=== PATIENT | male | born 1980 | race African-American/Black ===

== ENCOUNTER 2016-11-21 14:47 | Emergency (ER) | payer SELFPAY ==
[2016-11-21] MEDS ORDERED: Sodium Chloride 0.9% 10 ML Syringe FLUSH PRN (15:32)
--- NOTE | 2016-11-21 15:40 | EDM.PDOC ---
ED HPI GENERAL MEDICAL PROBLEM - General Chief Complaint: Chest Pain Stated Complaint: HIGH BLOOD PRESSURE, LEFT ARM PAIN Time Seen by Provider: 11/21/16 15:20 Source of Information: Reports: Patient History Limitations: Reports: No Limitations - History of Present Illness INITIAL COMMENTS - FREE TEXT/NARRATIVE: Patient is a 36-year-old male who reports to the ED complaining of elevated blood pressure. States this past Sunday got in a heated argument with his . States he felt on edge Sunday and Sunday. Yesterday developed some soreness to his left shoulder concerned this was related to his heart. He did sleep on a couch that evening thus questions if this may also be related to sleeping wrong. This morning took his hypertension medication lisinopril 10 mg and HCTZ. At approximately 2:00 checked his blood pressure found to be 198/129 and thus took a second tablet of his antihypertensive medication. On recheck blood pressure was 158/103. Normally the patients blood pressure runs 135/70. He does feel anxious and on edge. Currently does not have any chest pain, sob, numbness and tingling to his extremities, pain to his left shoulder, pain to his back, dizziness, fever, or any additional complaint. Patient smokes approximately one pack per day. Denies any excessive caffeine or energy drink use. Denies any recreational drugs. Patient is here working in the [employer] field. He is from [place]. States his brother had a heart attack and a stroke. Left Shoulder Pain Score (Numeric/FACES): 6 - Related Data Allergies Allergy/AdvReac Type Severity Reaction Status Date / Time diphenhydramine Allergy Anaphylactic Verified 11/21/16 14:55 [From Benadryl] Shock Home Meds: Home Meds Lisinopril/Hydrochlorothiazide [Lisinopril-Hctz 10-12.5 mg Tab] 1 tab PO DAILY 11/21/16 [History] Past Medical History Respiratory History: Reports: Asthma Social & Family History - Family History Family Medical History: Noncontributory Neurological: Reports: CVA Other Neurological Family History: brother - Tobacco Use Smoking Status *Q: Current Every Day Smoker Years of Tobacco use: 20 Packs/Tins Daily: 1 - Caffeine Use Caffeine Use: Reports: None - Recreational Drug Use Recreational Drug Use: No ED ROS GENERAL - Review of Systems Review Of Systems: ROS reveals no pertinent complaints other than HPI. ED EXAM, GENERAL - Physical Exam Exam: See Below Exam Limited By: No Limitations General Appearance: Alert, WD/WN, No Apparent Distress Ears: Hearing Grossly Normal Nose: Normal Inspection Throat/Mouth: Normal Voice, No Airway Compromise Neck: Normal Inspection, Supple Respiratory/Chest: No Respiratory Distress, Lungs Clear, Normal Breath Sounds, No Accessory Muscle Use, Chest Non-Tender Cardiovascular: Normal Peripheral Pulses, Regular Rate, Rhythm, No Murmur Peripheral Pulses: 2+: Radial (L), Radial (R) GI/Abdominal: Normal Bowel Sounds, Soft, Non-Tender, No Organomegaly, No Distention Extremities: Normal Inspection, Non-Tender, No Pedal Edema Neurological: Alert, Oriented, CN II-XII Intact, Normal Cognition, No Motor/ Sensory Deficits Psychiatric: Normal Affect, Normal Mood Skin Exam: Warm, Dry, Intact, Normal Color Course - Vital Signs Last Recorded V/S: Last Vital Signs Temp 97.4 F 11/21/16 14:50 Pulse 102 H 11/21/16 14:50 Resp 18 11/21/16 14:50 BP 149/117 H 11/21/16 16:13 Pulse Ox 96 11/21/16 14:50 - Orders/Labs/Meds Orders: Active Orders 24 hr Category Date Time Status EKG Documentation Completion [RC] STAT Care 11/21/16 15:32 Active Peripheral IV Care [RC] . DIRECTED Care 11/21/16 15:32 Active Chest 1V Frontal [CR] Stat Exams 11/21/16 15:32 Taken Peripheral IV Insertion Adult [OM.PC] Stat Oth 11/21/16 15:32 Ordered Labs: Laboratory Tests 11/21/16 11/21/16 Range/Units 14:55 14:55 WBC 11.00 H (4.23-9.07) K/mm3 RBC 6.43 H (4.63-6.08) M/mm3 Hgb 18.5 H (13.7-17.5) gm/L Hct 52.3 H (40.1-51.0) % MCV 81.3 (79.0-92.2) fl MCH 28.8 (25.7-32.2) pg MCHC 35.4 (32.2-35.5) g/dl RDW Std Deviation 44.5 H (35.1-43.9) fL Plt Count 314 (163-337) K/mm3 MPV 9.4 (9.4-12.3) fl Neut % (Auto) 69.8 H (34.0-67.9) % Lymph % (Auto) 22.6 (21.8-53.1) % Kay % (Auto) 6.5 (5.3-12.2) % Eos % (Auto) 0.7 L (0.8-7.0) Baso % (Auto) 0.3 (0.1-1.2) % Neut # (Auto) 7.68 H (1.78-5.38) K/mm3 Lymph # (Auto) 2.49 (1.32-3.57) K/mm3 Kay # (Auto) 0.71 (0.30-0.82) K/mm3 Eos # (Auto) 0.08 (0.04-0.54) K/mm3 Baso # (Auto) 0.03 (0.01-0.08) K/mm3 Manual Slide Review Normal smear Sodium 139 (136-145) mEq/L Potassium 3.7 (3.5-5.1) mEq/L Chloride 99 (98-107) mEq/L Carbon Dioxide 25 (21-32) mEq/L Anion Gap 18.7 H (5-15) BUN 10 (7-18) mg/dL Creatinine 1.1 (0.7-1.3) mg/dL Est Cr Clr Drug Dosing 95.86 mL/min Estimated GFR (MDRD) > 60 (>60) mL/min BUN/Creatinine Ratio 9.1 L (14-18) Glucose 106 (74-106) mg/dL Calcium 9.9 (8.5-10.1) mg/dL Total Bilirubin 0.9 (0.2-1.0) mg/dL AST 20 (15-37) U/L ALT 28 (16-63) U/L Alkaline Phosphatase 76 (46-116) U/L Troponin I < 0.017 (0.00-0.056) ng/mL Total Protein 8.8 H (6.4-8.2) g/dl Albumin 4.8 (3.4-5.0) g/dl Globulin 4.0 gm/dL Albumin/Globulin Ratio 1.2 (1-2) TSH 3rd Generation 1.712 (0.358-3.74) uIU/mL Meds: Medications Discontinued Medications Generic Name Dose Route Start Last Admin Trade Name Jesse PRN Reason Stop Dose Admin Amlodipine Besylate 10 mg 11/21/16 15:45 11/21/16 16:13 Norvasc PO 10 mg BEDTIME CHICO Administration Sodium Chloride 10 ml 11/21/16 15:32 11/21/16 16:14 Saline Flush FLUSH 10 ml ASDIRECTED PRN Administration Keep Vein Open - Re-Assessments/Exams Free Text/Narrative Re-Assessment/Exam: IV established with initial labs and studies include CBC, chem 14, troponin, and TSH. Chest x-ray and EKG will be obtained. I will also order amlodipine 10 mg by mouth with patient's blood pressure on admission to the ED 176/121 on recheck. EKG sinus rhythm at rate of 91. Poor R-wave progression. LVH pattern. Consider left atrial hypertrophy. Chest x-ray normal. Final interpretation pending. 11/21/16 16:54 reassessment, blood pressure is 171/95 with a heart rate of 72, SPO2 94 respirations 21. Still awaiting results of labs. Labs reviewed: White blood cell count 11.0, hemoglobin 18.5, platelet count 314 , sodium 139, potassium 3.7, AG 18.7 crit 1.1, troponin less than 0.017, TSH is 1.712. Reassessment, patient has no complaints at this time. Blood pressure currently 181/100 heart rate 74, SPO2 96 respiratory rate 16. 11/21/16 18:05 Reassessment, patient's blood pressure was 155/102. 1830 Will discharge patient home with instructions as documented. Departure - Departure Time of Disposition: 18:30 Disposition: Home, Self-Care 01 Condition: Good Clinical Impression: Essential (primary) hypertension Instructions: Hypertension, [id number] Referrals: PCP,Not In Area [Primary Care Provider] - Forms: ED Department Discharge, ED Return to Work/School Form Additional Instructions: Evaluation in the ED revealed that labs and chest x-ray were essentially normal. Blood pressure has remained elevated during hospitalization. Will increase your blood pressure medication from one tab lisinopril/HCTZ every day to 2 tabs every day. Suggest buying a blood pressure machine to check your blood pressure twice daily and keep daily log. Bring your blood pressure machine and log to your clinic visit with PCP. Call and make an appt with PCP to be evaluated in the next week. Suspect you may require addition of additional blood pressure medication. Additional ways to decrease your blood pressure is to loose some weight, decrease salt intake, exercise half-hour 5 times a day a week, and stop smoking. Return to ED for any new or worsening symptoms. - My Orders Last 24 Hours: My Active Orders 11/21/16 15:32 EKG Documentation Completion [RC] STAT Peripheral IV Care [RC] . DIRECTED Chest 1V Frontal [CR] Stat Peripheral IV Insertion Adult [OM.PC] Stat - Assessment/Plan Last 24 Hours: My Active Orders 11/21/16 15:32 EKG Documentation Completion [RC] STAT Peripheral IV Care [RC] . DIRECTED Chest 1V Frontal [CR] Stat Peripheral IV Insertion Adult [OM.PC] Stat
[2016-11-21] MEDS ORDERED: amLODIPine 10 MG Tab PO SCH (15:45)
--- NOTE | 2016-11-22 08:15 | CR ---
Chest: Portable view of the chest was obtained. Comparison: No prior study. Heart size and mediastinum are within normal limits for portable technique. Lungs are clear. Bony structures are grossly intact. Impression: 1. Nothing acute is appreciated on portable chest x-ray. Diagnostic code #1
== END 2016-11-21 19:00 | disposition home or self-care (01) ==
LOC: JD.ED 14:47
DX: I10 Essential (primary) hypertension (principal); F17.210 Nicotine dependence, cigarettes, uncomplicated; Z86.73 Personal history of transient ischemic attack (TIA), and cerebral infarction without residual deficits; Z88.8 Allergy status to other drugs, medicaments and biological substances; Z79.899 Other long term (current) drug therapy
CPT/HCPCS: 36415; 71010; 80053; 84443; 84484; 85025; 93005; 99284; A9270; J7050; 93010